=== PATIENT | male | born 1945 | race Caucasian/White ===

== ENCOUNTER → 2017-12-08 | Outpatient (CLI) | payer MEDICARE ==
[~2017-12-08] MED LIST: ATEN25TA PO; GABA300C PO
[2017-12-08 10:58] LABS: CREATININE 1.1 mg/dL (0.5-1.5)
== END | disposition home or self-care (01) ==
LOC: LAB 10:18
PROVIDERS: ATTEND Urology
DX: C64.9 Malignant neoplasm of unspecified kidney, except renal pelvis (principal)
CPT/HCPCS: 36415; 82565; 84520

== ENCOUNTER → 2017-12-09 | Outpatient (CLI) | payer MEDICARE ==
[~2017-12-09] MED LIST changes: +IOHEXOL-350 75 ML VIAL IV ONE
== END | disposition home or self-care (01) ==
LOC: RAH 08:07
PROVIDERS: ATTEND Urology
DX: C64.9 Malignant neoplasm of unspecified kidney, except renal pelvis (principal); K80.20 Calculus of gallbladder without cholecystitis without obstruction; K57.30 Diverticulosis of large intestine without perforation or abscess without bleeding; M51.37 Other intervertebral disc degeneration, lumbosacral region; I70.0 Atherosclerosis of aorta; Z90.11 Acquired absence of right breast and nipple
CPT/HCPCS: 74178; Q9967

== ENCOUNTER → 2018-09-28 | Outpatient (CLI) | payer MEDICARE ==
[~2018-09-28] MED LIST changes: -IOHEXOL-350 75 ML VIAL IV ONE
== END | disposition home or self-care (01) ==
LOC: RAH 07:35
PROVIDERS: ATTEND Obstetrics & Gynecology
DX: M47.26 Other spondylosis with radiculopathy, lumbar region (principal); M51.16 Intervertebral disc disorders with radiculopathy, lumbar region
CPT/HCPCS: 72148

== ENCOUNTER → 2018-11-28 | Outpatient (CLI) | payer MEDICARE | END | disposition home or self-care (01) | LOC: RAH 08:12 | PROVIDERS: ATTEND Urology | DX: C64.9 Malignant neoplasm of unspecified kidney, except renal pelvis (principal); Z85.528 Personal history of other malignant neoplasm of kidney | CPT/HCPCS: 71046 ==

== ENCOUNTER → 2019-12-20 | Outpatient (CLI) | payer MEDICARE | END | disposition home or self-care (01) | LOC: RAH 11:17 | PROVIDERS: ATTEND Urology | DX: C64.9 Malignant neoplasm of unspecified kidney, except renal pelvis (principal); I70.0 Atherosclerosis of aorta; M47.814 Spondylosis without myelopathy or radiculopathy, thoracic region | CPT/HCPCS: 71046; 76770 ==

== ENCOUNTER 2021-10-17 22:44 | Observation (INO) | payer MEDICARE ==
[~2021-10-17] VITALS: Ht 177.8 cm; Wt 76.5 kg
[2021-10-17] MEDS ORDERED: FAMOTIDINE 20MG VIAL IV ONE (23:00)
[2021-10-17] MEDS ORDERED: ONDANSETRON 4MG INJ IVP ONE (23:00)
[2021-10-17] MEDS ORDERED: 0.9%NACL 1000ML 1,000 ML IV ONE (23:00)
[2021-10-17] MEDS ORDERED: KETOROLAC 30MG VIAL (30MG/ML) IVP ONE (23:00)
[2021-10-17 23:07] LABS: BASOPHILS % (AUTO) 0.3 % (0.0-5.0); EOSINOPHILS % (AUTO) 1.8 % (0.0-8.0); HEMATOCRIT 35.9 % (42-54); LYMPHOCYTES % (AUTO) 16.7 % (21.0-51.0); MEAN CORPUSCULAR HGB CONC 35.9 g/dL (32.0-36.0); MEAN CORPUSCULAR VOLUME 97.3 fL (79-99); MONOCYTES % (AUTO) 11.5 % (3.0-13.0); NEUTROPHILS % (AUTO) 68.9 % (40.0-77.0); PLATELET COUNT (AUTO) 363 K/uL (130-400); RED BLOOD CELL COUNT(AUTO) 3.69 MIL/uL (4.50-6.20); RED CELL DISTRIBUTION WIDTH 13.7 % (11.0-15.5); WHITE BLOOD COUNT (AUTO) 9.9 K/uL (4.8-10.8)
[2021-10-17 23:18] LABS: POTASSIUM 3.8 mmol/L (3.5-5.1)
[2021-10-17 23:25] LABS: ALBUMIN 3.6 g/dL (3.5-5.0); BILIRUBIN,TOTAL 6.9 mg/dL (0.2-1.0); TOTAL PROTEIN, SERUM 7.6 g/dL (6.0-8.3)
[2021-10-18] MEDS ORDERED: IOHEXOL-350 75 ML VIAL IV ONE (00:06)
[2021-10-18] MEDS ORDERED: HYDROMORPHONE 1 MG INJ IV PRN (04:00)
[2021-10-18] MEDS: LACTATED RINGERS 1000ML 1,000 ML IV SCH ×2 (04:10→13:12)
[2021-10-18] MEDS: MORPHINE 2 MG SYG IV PRN ×3 (04:11→11:28)
[2021-10-18 08:30] VITALS: BP 160/102
[2021-10-18] MEDS ORDERED: ENOXAPARIN SODIUM 30 MG/0.3 ML SQ SCH (09:00)
[2021-10-18] MEDS ORDERED: CEFTRIAXONE 1G VIAL IVP SCH (09:00)
[2021-10-18] MEDS ORDERED: FAMOTIDINE 20MG VIAL IV SCH (09:00)
[2021-10-18 09:43] LABS: HEMATOCRIT 33.2 % (42-54); MEAN CORPUSCULAR HEMOGLOBIN 33.5 pg (27.0-33.0); MEAN CORPUSCULAR HGB CONC 34.3 g/dL (32.0-36.0); MEAN CORPUSCULAR VOLUME 97.6 fL (79-99); RED BLOOD CELL COUNT(AUTO) 3.4 MIL/uL (4.50-6.20); RED CELL DISTRIBUTION WIDTH 13.8 % (11.0-15.5)
[2021-10-18 10:06] LABS: ALBUMIN 2.9 g/dL (3.5-5.0); BILIRUBIN,TOTAL 6.9 mg/dL (0.2-1.0); CREATININE 0.9 mg/dL (0.5-1.5); POTASSIUM 4.5 mmol/L (3.5-5.1); TOTAL PROTEIN, SERUM 6.4 g/dL (6.0-8.3)
[2021-10-18] MEDS: ONDANSETRON 4MG INJ IV PRN ×2 (10:59→11:27)
[2021-10-18 12:26] VITALS: BP 130/80
[2021-10-18 16:40] VITALS: BP 165/95
[2021-10-25] MEDS ORDERED: BISA5TAB12 PO (09:03)
[2021-10-25] MEDS ORDERED: METR-172 PO (09:03)
[2021-10-25] MEDS ORDERED: OXYC5 PO (09:03)
[2021-10-25] MEDS ORDERED: LEVO500T90 PO (09:03)
[2021-10-25] MEDS ORDERED: POLY17PO4 PO (09:03)
[2021-10-25] MEDS ORDERED: QUESL4 PO (10:20)
== END 2021-10-18 17:38 | disposition home or self-care (01) ==
LOC: EDH 22:44 → EDHIP 10-18 03:52 → INTOOBSV 10-18 03:52 → 4BH 10-18 09:30
PROVIDERS: ADMIT Internal Medicine; ATTEND Internal Medicine
DX: K85.90 Acute pancreatitis without necrosis or infection, unspecified (principal); C78.7 Secondary malignant neoplasm of liver and intrahepatic bile duct; K82.8 Other specified diseases of gallbladder; K80.10 Calculus of gallbladder with chronic cholecystitis without obstruction; K57.90 Diverticulosis of intestine, part unspecified, without perforation or abscess without bleeding; R17 Unspecified jaundice; R79.89 Other specified abnormal findings of blood chemistry; I10 Essential (primary) hypertension; I71.4 Abdominal aortic aneurysm, without rupture; L29.9 Pruritus, unspecified; M47.815 Spondylosis without myelopathy or radiculopathy, thoracolumbar region; R11.2 Nausea with vomiting, unspecified; Z85.528 Personal history of other malignant neoplasm of kidney; Z90.5 Acquired absence of kidney; Z85.828 Personal history of other malignant neoplasm of skin; Z79.899 Other long term (current) drug therapy
CPT/HCPCS: 36415; 71045; 74177; 76705; 80053; 83690; 84484; 85025; 93005; 96361 ×3; 96372; 96374; 96375 ×2; 96376; 99285; G0378; J0696; J1650; J1885; J2405 ×2; J3490 ×2; J7030; J7120 ×2; 74181; 85027; Q9967

== ENCOUNTER 2021-12-15 11:13 | Emergency (ER) | payer MEDICARE ==
[~2021-12-15] VITALS: Ht 177.8 cm; Wt 66.7 kg
[~2021-12-15 11:13] MED LIST changes: -ATEN25TA PO; +BISA5TAB12 PO; -GABA300C PO; +LEVO500T90 PO; +METR-172 PO; +OXYC5 PO; +POLY17PO4 PO; +QUESL4 PO
[2021-12-15 11:46] LABS: BASOPHILS % (AUTO) 0.2 % (0.0-5.0); HEMATOCRIT 34.4 % (42-54); LYMPHOCYTES % (AUTO) 14.4 % (21.0-51.0); MEAN CORPUSCULAR HEMOGLOBIN 33.5 pg (27.0-33.0); MEAN CORPUSCULAR HGB CONC 34.3 g/dL (32.0-36.0); MEAN CORPUSCULAR VOLUME 97.7 fL (79-99); MONOCYTES % (AUTO) 27.6 % (3.0-13.0); NEUTROPHILS % (AUTO) 57.6 % (40.0-77.0); PLATELET COUNT (AUTO) 186 K/uL (130-400); RED BLOOD CELL COUNT(AUTO) 3.52 MIL/uL (4.50-6.20); RED CELL DISTRIBUTION WIDTH 14.3 % (11.0-15.5); WHITE BLOOD COUNT (AUTO) 4.2 K/uL (4.8-10.8)
[2021-12-15 11:54] LABS: CREATININE 1.2 mg/dL (0.5-1.5); POTASSIUM 3.7 mmol/L (3.5-5.1)
[2021-12-15 11:59] LABS: ALBUMIN 2.3 g/dL (3.5-5.0); BILIRUBIN,TOTAL 6.1 mg/dL (0.2-1.0); TOTAL PROTEIN, SERUM 6.1 g/dL (6.0-8.3)
[2021-12-15 12:58] LABS: MAGNESIUM 1.6 mg/dL (1.80-2.40)
[2021-12-15 13:16] VITALS: BP 93/57
[2021-12-15 13:47] LABS: APPEARANCE,URINE CLEAR (CLEAR); BILIRUBIN,URINE LARGE (NEGATIVE); COLOR,URINE ORANGE (YELLOW); GLUCOSE, URINE (UA) NEGATIVE (NEGATIVE); KETONES,URINE NEGATIVE (NEGATIVE); LEUKOCYTE ESTERASE ,URINE NEGATIVE (NEGATIVE); NITRATE,URINE POSITIVE (NEGATIVE); OCCULT BLOOD,URINE NEGATIVE (NEGATIVE); PH,URINE 6.5 (5.0-8.0); PROTEIN,URINE 30 mg/dL (NEGATIVE)
[2021-12-15 14:26] LABS: BACTERIA,URINE Rare /HPF (None Seen); RBC,URINE 0-1 /HPF (0-1); SQUAMOUS EPITHELIAL CELL,UR Rare /HPF (0-2); WBC,URINE 0-1 /HPF (0-1)
== END 2021-12-15 14:47 | disposition home or self-care (01) ==
LOC: EDH 11:13
DX: K83.1 Obstruction of bile duct (principal); C78.89 Secondary malignant neoplasm of other digestive organs; Z20.822 Contact with and (suspected) exposure to COVID-19; Z98.890 Other specified postprocedural states; Z79.899 Other long term (current) drug therapy
CPT/HCPCS: 36415; 71045; 80053; 81001; 82550; 83605; 83735; 84484; 85025; 87040 ×2; 87088; 87635; 87804 ×2; 93005; 99285; C9803